=== PATIENT | male | born 1930 | race Caucasian/White ===

== ENCOUNTER 2017-07-16 14:56 | Emergency (ER) | payer OTHER ==
--- NOTE | 2017-07-16 15:01 | EDPHY ---
H & P Time Seen by Provider: 07/16/17 14:56 HPI/ROS: CHIEF COMPLAINT: Cold feet, per EMS possible DVT HISTORY OF PRESENT ILLNESS: Patient arrives [facility]. He has a history of chronic left hip wound as well as bipolar disorder. Per EMS they were called because the patient had cold feet and they could not feel pulses at [facility] and they are concerned he had a DVT in either the left or the right leg. Patient has got no complaints except for chronic diffuse pain and a slow to heal left hip ulcer. He denies chest pain or shortness of breath, or any change in bilateral leg pain , or weakness or numbness in feet. REVIEW OF SYSTEMS: Eye: no change in vision ENT: no sore throat Cardiac: no chest pain or syncope Pulmonary: no cough or SOB Abdomen: no vomiting, diarrhea, abdominal pain Musculoskeletal: Chronic diffuse myalgias. Skin: Healed right hip skin ulcer, healing left hip skin ulcer. These been present apparently for many years. Neuro: no headache Constitutional: no fever : no urinary symptoms A comprehensive 10 point review of systems is otherwise negative aside from elements mentioned in the history of present illness. 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 General Appearance: Alert and conversant, cooperative. Eyes: No scleral icterus. ENT, Mouth: Normal mucous membranes. Respiratory: Normal respiratory effort, breath sounds equal, lungs are clear to auscultation. Cardiovascular: Regular rate and rhythm. Normal dorsalis pedis pulses bilaterally. Gastrointestinal: Abdomen is soft and non tender. No pulsatile abdominal mass. Neurological: Alert, face symmetric, normal motor and sensory in extremities. Sensation intact to light touch in both feet knee can move each foot on command. Skin: Healed right hip sore. He has a left hip sore with a central 1 cm area and some clear drainage but no pus and no surrounding redness or tenderness. Musculoskeletal: No peripheral edema. No calf tenderness. Psychiatric: Not agitated. Emergency Department course/MDM: Plan for wound care and ultrasound, discharge if negative. Does not appear to have vascular arterial occlusion. His wound does not appear to be infected. 1616: Ultrasound reviewed with Monica does not have DVT. Patient has normal perfusion in his feet here. Wound appears to be baseline. Stable for discharge 1636: Discussed with son, he says the patient has been complaining of back pain worse with movement, and leg cramping. I-STAT and lumbar spine x-ray ordered. No urinary symptoms 1719: Sodium 142, potassium 4, chloride 104, glucose 127, BUN and creatinine 25 and 0.8, hematocrit 41. Results of lab and x-ray discussed with son. Recommend [id number] pain medication, treatment for likely musculoskeletal back pain. Constitutional: Initial Vital Signs Temperature (C) 36.6 C 07/16/17 15:03 Heart Rate 64 07/16/17 15:03 Respiratory Rate 18 07/16/17 15:03 Blood Pressure 157/78 H 07/16/17 15:03 O2 Sat (%) 94 07/16/17 15:03 O2 Delivery Mode Room Air Allergies/Adverse Reactions: No Known Allergies Allergy (Unverified 07/16/17 15:10) Medical Decision Making - Diagnostics Imaging Results: Imaging Impressions Extremity Venous Study 07/16/17 15:14 Impression: No evidence of deep vein thrombosis in the lower extremities with limited visualization of the peroneal veins. Findings discussed with SWATHI DELCID 07/16/2017 at 16:15. Lumbar Spine X-Ray 07/16/17 16:35 Impression: 1. 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 2. No acute osseous abnormality seen. Ultrasound negative for DVT in either leg. Lumbar spine x-ray personally interpreted as negative for acute abnormality. Imaging: Discussed imaging studies w/ callisthenics instructor Radiologist, I viewed and interpreted images myself Differential Diagnosis: Differential considered for cold feet including but not limited to vascular arterial occlusion, DVT, compartment syndrome, hypothermia. - Data Points Medications Given: Discontinued Medications Acetaminophen (Tylenol) 650 mg PO EDNOW ONE Stop: 07/16/17 17:47 Last Admin: 07/16/17 19:38 Dose: 650 mg Departure - Departure Disposition: Home, Routine, Self-Care Clinical Impression: Open wound of left hip Qualifiers: Encounter type: initial encounter Qualified Code(s): S71.002A - Unspecified open wound, left hip, initial encounter Back pain Qualifiers: Back pain location: low back pain Chronicity: unspecified Back pain laterality : bilateral Sciatica presence: without sciatica Qualified Code(s): M54.5 - Low back pain Condition: Good Instructions: Acute Low Back Pain (ED), Chronic Wounds (ED) Referrals: Patient,NotPresent [Unknown] - As per Instructions Print Language: Panamanian
[2017-07-16] MEDS ORDERED: ACETAMINOPHEN 325 MG TAB PO ONE (17:46)
[2017-07-16 17:49] VITALS: TEMP 98.2
[2017-07-16 22:33] VITALS: BP 132/62; PULSE 70; RESP 18; O2SAT 92
== END 2017-07-16 22:33 | disposition home or self-care (01) ==
LOC: EDUNIT#
DX: L98.499 Non-pressure chronic ulcer of skin of other sites with unspecified severity (principal); M54.5 Low back pain